=== PATIENT | male | born 1955 | race Caucasian/White ===

== ENCOUNTER 2016-04-12 16:59 | Emergency (ER) | payer BC ==
[2015-08-15 10:45] VITALS: BMI 30.8
[~2016-04-12 16:59] MED LIST: AMBIEN10 MG PO; BAYER CHEWABLE81 MG PO; CARAFATE1 G PO; CLEOCIN HCL300 MG PO; COZAAR50 MG PO; DEXILANT60 MG PO; FEXOFENADINE HC60 MG PO; FLOMAX0.4 MG PO; IPRAT-ALBUT 0.5-3 ML UPD; LACTINEX C1 TAB.CHEW PO; LEVAQUIN750 MG PO; LOTENSIN40 MG PO; Levaquin PREMIX IV; MIRALAX17 GM PO; MULTIPLE VITAMI1 TA1 PO; MUPIROCIN22 GM; PERCOCET 7.5/321 TAB PO; PRILOSEC20 MG PO; PROZAC20 MG PO; TYLENOL W/CODEI1 TAB PO; VIBRAMYCIN 100100 MG PO; XANAX2 MG PO; ZOCOR20 MG PO
[2016-04-12 17:54] LABS: BASOPHILS 0.1 % (0.0-2.0); EOSINOPHILS 0.2 % (0-7); HEMATOCRIT 43.8 % (42.0-54.0); HEMOGLOBIN 15.2 g/dL (13.5-17.5); IMMATURE GRANULOCYTES 0.2 % (0-5); LYMPHOCYTES 16.4 % (15-50); MCH 31.9 pg (26.0-34.0); MCHC 34.7 g/dL (31.0-37.0); MEAN PLATELET VOLUME 10.3 fL (7.4-10.4); NEUTROPHILS 75.1 % (40-80); PLATELET COUNT 202 10x3/uL (130-400); RBC 4.76 10x6/uL (4.20-6.10); RDW 12.8 % (11.5-14.5); WBC 8.7 10x3/uL (4.8-10.8)
[2016-04-12 18:32] LABS: ALBUMIN 4.2 g/dL (3.4-5.0); ALKALINE PHOSPHATASE 91 U/L (46-116); ALT (SGPT) 23 U/L (10-68); BILIRUBIN - TOTAL 0.41 mg/dL (0.2-1.3); CALC OSMOLALITY 281 mosm/kg (275-300); CALCIUM 9.4 mg/dL (8.5-10.1); CARBON DIOXIDE 28.1 mmol/L (21.0-32.0); CHLORIDE - SERUM 105 mmol/L (98-107); CREATININE - SERUM 0.8 mg/dL (0.6-1.3); GLUCOSE 106 mg/dL (74-106); POTASSIUM - SERUM 4.3 mmol/L (3.5-5.1); PROTEIN - SERUM 7.3 g/dL (6.4-8.2); SODIUM 142 mmol/L (136-145); UREA NITROGEN 10 mg/dL (7-18); eGFR NON AFRICAN AMERICAN > 90 mL/min (90-120)
[2016-04-12 19:46] LABS: AMYLASE - SERUM 57 U/L (25-115); LIPASE 121 U/L (73-393)
== END 2016-04-12 20:35 | disposition home or self-care (01) ==
LOC: D.ER 16:59
PROVIDERS: Emergency Medicine; Nurse Practitioner Acute Care
DX: K81.0 Acute cholecystitis (principal); K21.9 Gastro-esophageal reflux disease without esophagitis; E78.5 Hyperlipidemia, unspecified; I10 Essential (primary) hypertension